=== PATIENT | female | born 1950 | race Caucasian/White ===

== ENCOUNTER → 2017-04-18 | Outpatient (CLI) | payer MEDICARE, OTHER ==
[~2017-04-18] MED LIST: bp med
== END ==
LOC: MC.RAD 11:15
DX: Z12.31 Encounter for screening mammogram for malignant neoplasm of breast (principal)

== ENCOUNTER 2018-02-04 13:17 | Inpatient (IN) | payer MEDICARE, OTHER ==
[2018-02-04] VITALS (307 sets, daily range): BP systolic 101–106; BP diastolic 51–961; PULSE 72–84; TEMP 96.1–97.4; O2SAT 80–98
[~2018-02-04] VITALS: Ht 175.3 cm; Wt 116.0 kg
[2018-02-04 14:18] LABS: BASO # 0.1 (0.0-0.2); BASO % 0.7 % (0.0-2.0); EOS % 0.2 % (0-4.0); GRAN # 5.6 (1.4-6.5); HEMATOCRIT 43.2 % (37.0-47.0); LYMPH % 23.3 % (20.0-51.0); MEAN CELL VOLUME 96 fl (80.0-100.0); MEAN CORPUSCULAR HEMOGLOBIN 31 pg (27.0-31.0); MEAN CORPUSCULAR HGB CONC 32 g/dl (33.0-37.0); MEAN PLATELET VOLUME 9.5 fl (7.4-10.4); MONO % 11.5 % (1.7-9.3); PLATELET COUNT 257 K/mm3 (130-400); RED BLOOD COUNT 4.49 M/mm3 (4.10-5.30); REDCELL DISTRIBUTION WIDTH-CV 15.3 % (11.5-14.5)
[2018-02-04] MEDS ORDERED: MICARDIS HCT 121 TA1 PO (14:19)
[2018-02-04] MEDS ORDERED: NORCO 325 MG-7.1 TAB PO (14:20)
[2018-02-04] MEDS ORDERED: AMITRIPTYLINE H25 M1 PO (14:21)
[2018-02-04 14:28] LABS: ALANINE AMINOTRANSFERASE 35 U/L (9-52); ALBUMIN 3.7 gm/dL (3.5-5.0); ALKALINE PHOSPHATASE 113 U/L (50-136); ANION GAP 12 mmol/L (7-16); AST,SGOT 28 U/L (15-37); BILIRUBIN,TOTAL 0.6 mg/dL (0.0-1.0); BLOOD UREA NITROGEN 28 mg/dL (7-17); CALCIUM 9.6 mg/dL (8.4-10.2); CARBON DIOXIDE 28 mmol/L (22-30); CHLORIDE 96 mmol/L (98-107); CREATININE, serum 1.94 mg/dL (0.52-1.25); GLUCOSE 100 mg/dL (74-106); POTASSIUM 4.2 mmol/L (3.4-5.0); SODIUM 136 mmol/L (137-145); TOTAL PROTEIN 7.1 gm/dL (6.4-8.2)
[2018-02-04] MEDS ORDERED: D-2000 90 MG-201 TAB PO (14:38)
[2018-02-04] MEDS ORDERED: PAMELOR50 MG PO (14:39)
[2018-02-04] MEDS ORDERED: NEURONTIN600 MG/TAB PO (14:41)
[2018-02-04 14:51] LABS: TROPONIN-I < 0.012 ng/mL (0.000-0.034)
[2018-02-04 15:22] LABS: COLLECTION METHOD CATHETER
[2018-02-04 15:34] LABS: HYALINE CAST >12 /lpf; MUCOUS Present /lpf; PH 5 (5-8); SQUAMOUS EPITHELIAL 0-2 /hpf; URINE APPEARANCE Hazy; URINE BACTERIA None Seen /hpf; URINE BILIRUBIN Negative (NEGATIVE); URINE BLOOD Negative (NEGATIVE); URINE COLOR Yellow; URINE GLUCOSE Negative (NEGATIVE); URINE KETONE Negative (NEGATIVE); URINE LEUKOCYTE ESTERASE Negative (NEGATIVE); URINE NITRATE Negative (NEGATIVE); URINE PROTEIN(semi-quant) Negative (NEGATIVE); URINE RBC 0-2 /hpf; URINE UROBILINOGEN >=4.0 mg/dL (NEGATIVE)
[2018-02-04] MEDS ORDERED: CYMBALTA 30MG30 MG PO (16:54)
[2018-02-05] VITALS (471 sets, daily range): BP systolic 95–118; BP diastolic 50–75; PULSE 70–99; TEMP 97.2–98.7; O2SAT 85–98
[2018-02-05 06:09] LABS: BASO % 0.6 % (0.0-2.0); EOS # 0.1 (0.0-0.7); EOS % 1.9 % (0-4.0); GRAN # 3.4 (1.4-6.5); GRAN % 54.3 % (42.2-75.2); HEMATOCRIT 39.6 % (37.0-47.0); HEMOGLOBIN 12.9 g/dl (12.5-16.0); MEAN CELL VOLUME 95 fl (80.0-100.0); MEAN CORPUSCULAR HEMOGLOBIN 31 pg (27.0-31.0); MEAN CORPUSCULAR HGB CONC 33 g/dl (33.0-37.0); MEAN PLATELET VOLUME 9.3 fl (7.4-10.4); MONO # 0.7 (0.1-0.6); PLATELET COUNT 246 K/mm3 (130-400); RED BLOOD COUNT 4.17 M/mm3 (4.10-5.30); REDCELL DISTRIBUTION WIDTH-CV 15.4 % (11.5-14.5)
[2018-02-05 07:11] LABS: CALCIUM 8.7 mg/dL (8.4-10.2); CREATININE, serum 1.18 mg/dL (0.52-1.25); POTASSIUM 3.7 mmol/L (3.4-5.0)
[2018-02-06 03:38] VITALS: BP 117/73; PULSE 92; TEMP 98
[2018-02-06 07:16] VITALS: BP 94/65; PULSE 86; TEMP 98.6
[2018-02-06 13:28] VITALS: BP 107/76; PULSE 95; TEMP 98.5
[2018-02-06 16:08] VITALS: BP 88/49; PULSE 73; TEMP 97.9
[2018-02-06 19:36] VITALS: BP 105/61; PULSE 86; TEMP 98.6
[2018-02-06 23:58] VITALS: BP 94/50; PULSE 78; TEMP 98.7
[2018-02-07 04:14] VITALS: BP 98/51; PULSE 81; TEMP 98.2
[2018-02-07 07:43] VITALS: BP 100/55; PULSE 79; TEMP 98.6
[2018-02-07 08:37] LABS: BASO % 0.6 % (0.0-2.0); EOS # 0.1 (0.0-0.7); EOS % 2.1 % (0-4.0); GRAN # 3.7 (1.4-6.5); GRAN % 58.8 % (42.2-75.2); LYMPH # 1.7 (1.2-3.4); LYMPH % 27.7 % (20.0-51.0); MEAN CELL VOLUME 94 fl (80.0-100.0); MEAN CORPUSCULAR HEMOGLOBIN 31 pg (27.0-31.0); MEAN CORPUSCULAR HGB CONC 33 g/dl (33.0-37.0); MEAN PLATELET VOLUME 9.4 fl (7.4-10.4); MONO # 0.7 (0.1-0.6); MONO % 10.5 % (1.7-9.3); PLATELET COUNT 220 K/mm3 (130-400); REDCELL DISTRIBUTION WIDTH-CV 15.2 % (11.5-14.5)
[2018-02-07 08:39] LABS: HEMATOCRIT 36.8 % (37.0-47.0)
[2018-02-07 08:44] LABS: CALCIUM 9.2 mg/dL (8.4-10.2); CREATININE, serum 0.91 mg/dL (0.52-1.25); POTASSIUM 4.3 mmol/L (3.4-5.0)
[2018-02-07 11:36] VITALS: BP 105/63; PULSE 89; TEMP 98.4
[2018-02-07 16:30] VITALS: BP 99/62; PULSE 83; TEMP 98.5
[2018-02-07] MEDS ORDERED: LEVAQUIN 750MG750 M1 PO (16:43)
[2018-02-07] MEDS ORDERED: PROAMATINE 5MG T5 MG PO (16:43)
== END 2018-02-07 18:00 | disposition home or self-care (01) | DRG 682 ==
LOC: COL.ER 13:17 → ICU 15:05 → MEDICAL 02-05 09:07 → ICU 02-05 09:08 → MEDICAL 02-05 22:49
PROVIDERS: Emergency Medicine; Physician Assistant
DX: N17.9 Acute kidney failure, unspecified (principal); J18.9 Pneumonia, unspecified organism; Z68.41 Body mass index [BMI] 40.0-44.9, adult; I95.2 Hypotension due to drugs; T46.5X5A Adverse effect of other antihypertensive drugs, initial encounter; E86.0 Dehydration; I10 Essential (primary) hypertension; F17.210 Nicotine dependence, cigarettes, uncomplicated; E66.9 Obesity, unspecified
CPT/HCPCS: 99223-AI; 99232-AI; 99233-AI; 99239; G0378; J1644; J1956; J3010; J7030; Q9967

== ENCOUNTER 2018-04-13 12:45 | Outpatient (RCR) | payer MEDICARE, OTHER ==
[~2018-04-13 12:45] MED LIST changes: +AMITRIPTYLINE H25 M1 PO; +CYMBALTA 30MG30 MG PO; +D-2000 90 MG-201 TAB PO; +LEVAQUIN 750MG750 M1 PO; +MICARDIS HCT 121 TA1 PO; +NEURONTIN600 MG/TAB PO; +NORCO 325 MG-7.1 TAB PO; +PAMELOR50 MG PO; +PROAMATINE 5MG T5 MG PO
== END 2018-04-18 08:56 | disposition home or self-care (01) ==
LOC: MKS.ESL.PT 12:45
DX: I89.0 Lymphedema, not elsewhere classified (principal); Z91.81 History of falling
CPT/HCPCS: G8978-GP; G8979-GP; G8980-GP

== ENCOUNTER → 2019-06-19 | Outpatient (CLI) | payer MEDICARE, OTHER | LOC: MC.RAD 13:04 | DX: Z12.31 Encounter for screening mammogram for malignant neoplasm of breast (principal) ==

== ENCOUNTER 2019-09-20 08:00 | Outpatient (RCR) | payer MEDICARE, OTHER ==
[2019-09-02 09:25] LABS: CALCIUM 9.7 mg/dL (8.4-10.2); CREATININE, serum 0.96 (0.52-1.25); POTASSIUM 4.7 mmol/L (3.4-5.0)
[2019-09-02 09:51] VITALS: BP 149/95; PULSE 89; TEMP 97.9
[2019-09-02 10:36] VITALS: BP 155/92; PULSE 91; TEMP 97.4
[2019-09-02 12:07] VITALS: BP 142/99; PULSE 95
[2019-09-02 13:25] VITALS: BP 135/82; PULSE 103
--- NOTE | 2019-09-02 16:47 | NUR ---
Pt required a dressing change during her infusion today. I dressed with 4x4 gauze, kerlix and coban. I did speak with Ericka HARDY who is pt's wound care nurse who offerred it would be reasonable to apply super absorbent dressings to open ulcers as needed. OKAY to use ABD pads with kerlix, and okay to use coban on top of kerlix. Any kind of alginate dressing would be fine. It is also fine for pt to bring in her own dressings and to use this material. okay to irrigate with normal saline or sterile water and pat dry before applying new dressing. spoke with Dr. Ford and will fax order to her for her to sign.
[2019-09-04 08:12] VITALS: BP 129/76; PULSE 101; TEMP 98.8
[2019-09-04 09:16] LABS: CALCIUM 9.9 mg/dL (8.4-10.2); CREATININE, serum 0.95 (0.52-1.25)
[2019-09-04 10:30] VITALS: BP 146/99; PULSE 103
[2019-09-04 11:30] VITALS: BP 155/90; PULSE 98
[2019-09-04 12:30] VITALS: BP 150/86; PULSE 97
[2019-09-04 14:23] VITALS: BP 105/71; PULSE 57; TEMP 98.8
[2019-09-06 09:01] LABS: CALCIUM 9.9 mg/dL (8.4-10.2); CREATININE, serum 0.98 (0.52-1.25)
[2019-09-06 09:02] VITALS: BP 110/79; PULSE 63; TEMP 98
[2019-09-06 14:15] VITALS: BP 138/84; PULSE 102; TEMP 97.9
[2019-09-08 08:25] VITALS: BP 139/82; PULSE 88; TEMP 97.9
[2019-09-08 11:13] VITALS: BP 127/72; PULSE 94; TEMP 97.9
--- NOTE | 2019-09-08 12:28 | NUR ---
Assessment complete. Patient alert and oriented. No complaints of pain at this time. IV site CD&I, place on 09/06 in express unit for this infusion specifically. Heart sounds were normal. Upper lobes of lungs were clear, lower lobes were diminished. Severe generalized edema. Bilateral lower extremities are ededamous and reddened. Radial and distal pulses were palpable. IV lasix infusing at 19 ml/hr. No further needs expressed at this time. Call light is within reach.
--- NOTE | 2019-09-08 14:23 | NUR ---
PATIENT LEFT THE FLOOR AT THIS TIME. LASIX INFUSION FINISHED. PATIENT WILL BE BACK ON MONDAY FOR SAME INFUSION, LEFT IV IN PLACE FOR NEXT VISIT. IV WAS CD&I AT ARRIVAL AND DEPARTURE. NO COMPLAINTS OF PAIN OR DISCOMFORT. WHEELED PATIENT OUT IN A WHEEL CHAIR VIA ER EXIT.
[2019-09-10 08:08] VITALS: BP 126/85; PULSE 90; TEMP 97.8
[2019-09-10 09:29] LABS: CALCIUM 10.1 mg/dL (8.4-10.2); CREATININE, serum 0.94 (0.52-1.25); POTASSIUM 3.7 mmol/L (3.4-5.0)
[2019-09-10 09:37] VITALS: BP 101/65; PULSE 97
[2019-09-10 10:45] VITALS: BP 102/75; PULSE 96
[2019-09-10 12:30] VITALS: BP 115/87; PULSE 97
[2019-09-10 14:00] VITALS: BP 125/90; PULSE 99
[2019-09-12 08:15] VITALS: BP 110/70; PULSE 85; TEMP 97.1
[2019-09-12 09:00] VITALS: BP 123/98; PULSE 85
[2019-09-12 09:01] LABS: CALCIUM 9.6 mg/dL (8.4-10.2); CREATININE, serum 0.9 (0.52-1.25); POTASSIUM 3.6 mmol/L (3.4-5.0)
[2019-09-12 10:00] VITALS: BP 101/63; PULSE 102
--- NOTE | 2019-09-12 12:01 | NUR ---
PT SLEEPING AT THIS TIME.
[2019-09-12 12:58] VITALS: BP 116/80; PULSE 101
[2019-09-12 14:14] VITALS: BP 118/85; PULSE 58
--- NOTE | 2019-09-14 08:00 | NUR ---
Patient to room 352 by wheelchair with . A&Ox4, denies pain and discomfort. VSS. IV CDI, coban covering. Lungs clear all mendes. HRR. BLE edema, kerlix covering prior wounds on legs. Patient on AHA diet. No further needs expressed from patient. Call light within reach
[2019-09-14 10:45] LABS: CREATININE, serum 0.98 (0.52-1.25); POTASSIUM 3.6 mmol/L (3.4-5.0)
[2019-09-14 11:33] VITALS: BP 125/77; PULSE 94; TEMP 97.3
[2019-09-14 15:50] VITALS: BP 115/74; PULSE 102; TEMP 97.7
--- NOTE | 2019-09-14 16:20 | NUR ---
IV lasix complete. Patient tolerated well. IV removed, tip intact, gauze and coban applied. VSS. Patient A&O. No further needs expressed from patient. Patient ambulated independently to wheelchair with assistance of . transported patient to vehicle with nursing staff
[2019-09-16 08:21] VITALS: BP 118/81; PULSE 87; TEMP 97.9
--- NOTE | 2019-09-16 08:30 | NUR ---
PATIENT STARTED ON PRESCRIBED LASIX INFUSION. SHE IS TOLERATING WELL. SHE IS ADVISED TO CALL WITH ANY CONCERNS OR NEEDS. SHE VERBALIZES UNDERSTANDING.
[2019-09-16 08:39] LABS: CALCIUM 9.6 mg/dL (8.4-10.2); CREATININE, serum 0.89 (0.52-1.25); POTASSIUM 3.6 mmol/L (3.4-5.0)
[2019-09-16 09:45] VITALS: BP 137/92; PULSE 101
--- NOTE | 2019-09-16 11:31 | NUR ---
PATIENT SLEEPING AT THIS TIME. LASIX INFUSION IN PROGRESS. WILL CONTINUE TO MONITOR.
[2019-09-16 11:43] VITALS: BP 98/57
[2019-09-16 14:07] VITALS: BP 147/90; PULSE 107
--- NOTE | 2019-09-16 14:09 | NUR ---
INFUSION COMPLETED AT 1400. PATIENT IV DISCONTINUED. VS TAKEN PRIOR TO DISCHARGE. WHEELS HER OUT IN WHEELCHAIR.
[2019-09-18 08:27] VITALS: BP 131/60; PULSE 92; TEMP 97.5
[2019-09-18 08:43] LABS: CALCIUM 9.6 mg/dL (8.4-10.2); CREATININE, serum 0.85 (0.52-1.25); POTASSIUM 3.3 mmol/L (3.4-5.0)
[2019-09-18 09:15] VITALS: BP 131/86; PULSE 96
[2019-09-18 10:20] VITALS: BP 112/79; PULSE 98
[2019-09-18 12:04] VITALS: BP 132/87; PULSE 100
[2019-09-18 13:22] VITALS: BP 129/100; PULSE 104; TEMP 97.4
[~2019-09-20] VITALS: Ht 175.3 cm; Wt 151.6 kg
[~2019-09-20 08:00] MED LIST changes: -D-2000 90 MG-201 TAB PO; +MASON NATURAL2000 IU PO; +PROAIR HFA0.09 MG/AC IH
[2019-09-20 08:46] LABS: CALCIUM 9.7 mg/dL (8.4-10.2); CREATININE, serum 0.79 (0.52-1.25); POTASSIUM 3.9 mmol/L (3.4-5.0)
[2019-09-20 08:49] VITALS: BP 148/76; PULSE 79; TEMP 97.7
[2019-09-20 09:28] VITALS: BP 156/83; PULSE 99
[2019-09-20 12:30] VITALS: BP 112/77; PULSE 91
[2019-09-20 14:00] VITALS: BP 136/87; PULSE 88
== END 2019-09-20 14:35 | disposition home or self-care (01) ==
LOC: EUO 08:00
PROVIDERS: Internal Medicine Interventional Cardiology
DX: I89.0 Lymphedema, not elsewhere classified (principal); R60.0 Localized edema; Z79.899 Other long term (current) drug therapy
CPT/HCPCS: J1940

== ENCOUNTER → 2019-12-17 | Outpatient (CLI) | payer MEDICARE, OTHER | LOC: ZCOL.LAB 15:22 | DX: L97.229 Non-pressure chronic ulcer of left calf with unspecified severity (principal) ==

== ENCOUNTER 2020-01-07 09:15 | Outpatient (RCR) | payer MEDICARE, OTHER | END 2020-01-12 | disposition home or self-care (01) | LOC: WSPT | DX: I89.0 Lymphedema, not elsewhere classified (principal) ==

== ENCOUNTER 2020-03-19 16:56 | Observation (INO) | payer MEDICARE, OTHER ==
[~2020-03-19] VITALS: Ht 172.7 cm; Wt 302.0 kg
[2020-03-19] MEDS ORDERED: TYLENOL 325MG325 MG PO (17:29)
[2020-03-19 17:40] LABS: BASO # 0.1 (0.0-0.2); BASO % 1.2 % (0.0-2.0); EOS # 0.2 (0.0-0.7); EOS % 2.6 % (0-4.0); GRAN # 3.1 (1.4-6.5); GRAN % 54.5 % (42.2-75.2); HEMOGLOBIN 14.6 g/dl (12.5-16.0); LYMPH # 1.8 (1.2-3.4); LYMPH % 30.8 % (20.0-51.0); MEAN CELL VOLUME 95 fl (80.0-100.0); MEAN CORPUSCULAR HEMOGLOBIN 30 pg (27.0-31.0); MEAN CORPUSCULAR HGB CONC 31 g/dl (33.0-37.0); MEAN PLATELET VOLUME 9.5 fl (7.4-10.4); MONO # 0.6 (0.1-0.6); MONO % 10.7 % (1.7-9.3); PLATELET COUNT 253 K/mm3 (130-400); RED BLOOD COUNT 4.95 M/mm3 (4.10-5.30); REDCELL DISTRIBUTION WIDTH-CV 13.9 % (11.5-14.5)
[2020-03-19 17:56] LABS: ALBUMIN 4.1 gm/dL (3.5-5.0); C-REACTIVE PROTEIN 1.2 mg/dL (0.0-0.9); CALCIUM 9.5 mg/dL (8.4-10.2); CREATININE, serum 0.81 (0.52-1.25); POTASSIUM 3.8 mmol/L (3.4-5.0); TOTAL PROTEIN 7.9 gm/dL (6.4-8.2)
--- NOTE | 2020-03-19 20:00 | NUR ---
ARRIVES FROM ED PER W/C. IS ALERT AND ORIENTED X4. HAS IVF INFUSING TO RIGHT FOREARM WITHOUT REDNESS OR SWELLING. HAS BILATERAL LOWER LEG SWELLING WITH DRESSINGS TO LEFT LOWER LEG THAT SHE CHANGES DAILY, LEFT LOWER LEG DOES HAVE SOME WEEPING NOTED. DENIES PAIN TO ABD AT THIS TIME. REPORTS PAIN HAS BEEN CONSISTENT FOR A MONTH. REPORTS CHRONIC BACK PAIN. UP AD JACK, VOIDING WITHOUT PROBLEM.
[2020-03-19 20:24] VITALS: BP 128/76; PULSE 69; TEMP 98
[2020-03-19 20:43] LABS: COLLECTION METHOD CLEAN CATCH
[2020-03-19 20:48] LABS: PH 6 (5-8); SQUAMOUS EPITHELIAL 0-2 /hpf; URINE APPEARANCE Clear; URINE BACTERIA None Seen /hpf; URINE BILIRUBIN Negative (NEGATIVE); URINE BLOOD Negative (NEGATIVE); URINE COLOR Yellow; URINE GLUCOSE Negative (NEGATIVE); URINE KETONE Negative (NEGATIVE); URINE LEUKOCYTE ESTERASE Negative (NEGATIVE); URINE NITRATE Negative (NEGATIVE); URINE PROTEIN(semi-quant) Negative (NEGATIVE); URINE RBC None Seen /hpf
[2020-03-19] MEDS ORDERED: CEPHALEXIN500 M1 PO (21:12)
[2020-03-19] MEDS ORDERED: FOSAMAX 70MG TA70 MG PO (21:13)
[2020-03-19] MEDS ORDERED: PAMELOR 25MG25 MG PO (21:15)
[2020-03-19 23:46] VITALS: BP 136/76; PULSE 78; TEMP 99.3
--- NOTE | 2020-03-20 | NUR ---
NPO for possible procedure today.
[2020-03-20 04:25] VITALS: BP 133/80; PULSE 80; TEMP 98.9
[2020-03-20 07:17] LABS: BASO # 0.1 (0.0-0.2); BASO % 1.1 % (0.0-2.0); EOS # 0.2 (0.0-0.7); EOS % 3.5 % (0-4.0); GRAN # 3.1 (1.4-6.5); GRAN % 58.3 % (42.2-75.2); HEMATOCRIT 44.3 % (37.0-47.0); HEMOGLOBIN 13.6 g/dl (12.5-16.0); LYMPH # 1.3 (1.2-3.4); LYMPH % 24.6 % (20.0-51.0); MEAN CELL VOLUME 95 fl (80.0-100.0); MEAN CORPUSCULAR HEMOGLOBIN 29 pg (27.0-31.0); MEAN CORPUSCULAR HGB CONC 31 g/dl (33.0-37.0); MEAN PLATELET VOLUME 10.2 fl (7.4-10.4); MONO # 0.7 (0.1-0.6); MONO % 12.1 % (1.7-9.3); PLATELET COUNT 238 K/mm3 (130-400); RED BLOOD COUNT 4.66 M/mm3 (4.10-5.30); REDCELL DISTRIBUTION WIDTH-CV 13.9 % (11.5-14.5)
[2020-03-20 07:22] VITALS: BP 110/56; PULSE 79; TEMP 98
--- NOTE | 2020-03-20 07:37 | NUR ---
PT IN BED DURING REPORT. VERBALIZED THAT SHE WANTS TO GO HOME TODAY.
--- NOTE | 2020-03-20 08:20 | NUR ---
PT SITTING UP ON SIDE OF BED TO TAKE AM MEDS. PT DENIES PAIN OR ISSUES R/T HOSPITAL ADMISSION. RESTING QUIETLY. PT A/O X3.
--- NOTE | 2020-03-20 11:02 | NUR ---
DISCHARGE INSTRUCTIONS PROVIDED TO PT AND SPOUSE. QUESTIONS SOLICITED AND ANSWERED. PT TAKEN TO FRONT IN A WHEEL CHAIR.
--- NOTE | 2020-03-20 11:18 | NUR ---
The patient discharged before Food And Beverage Manager could complete intake.
== END 2020-03-20 11:03 | disposition home or self-care (01) ==
LOC: COL.ER 16:56 → SURG 18:11
PROVIDERS: Emergency Medicine; ADMIT Surgery
DX: R10.31 Right lower quadrant pain (principal); Z90.49 Acquired absence of other specified parts of digestive tract; G89.29 Other chronic pain; M54.9 Dorsalgia, unspecified; Z87.891 Personal history of nicotine dependence; Z88.0 Allergy status to penicillin; Z88.8 Allergy status to other drugs, medicaments and biological substances
CPT/HCPCS: G0378; J0696; J7030

== ENCOUNTER 2020-04-01 13:00 | Outpatient (RCR) | payer MEDICARE, OTHER ==
[~2020-04-01 13:00] MED LIST changes: +CEPHALEXIN500 M1 PO; +FOSAMAX 70MG TA70 MG PO; +PAMELOR 25MG25 MG PO; +TYLENOL 325MG325 MG PO
== END 2020-04-12 | disposition home or self-care (01) ==
LOC: WSPT
DX: I89.0 Lymphedema, not elsewhere classified (principal)

== ENCOUNTER → 2020-06-22 | Outpatient (CLI) | payer MEDICARE, OTHER | LOC: MC.RAD 13:54 | DX: Z12.31 Encounter for screening mammogram for malignant neoplasm of breast (principal) ==

== ENCOUNTER 2020-12-04 05:57 | Day surgery (SDC) | payer MEDICARE, OTHER ==
[~2020-12-04] VITALS: Ht 172.7 cm; Wt 137.3 kg
[~2020-12-04 05:57] MED LIST changes: -MASON NATURAL2000 IU PO; +VITAMIN D31000 I1 PO
[2020-12-04] MEDS ORDERED: PROAMATINE 5MG T5 MG PO (06:39)
[2020-12-04] MEDS ORDERED: ASPIRIN E.C. 8181 MG PO (06:40)
[2020-12-04] MEDS ORDERED: NYSTATIN POWDER15 GM TOP (06:41)
[2020-12-04] MEDS ORDERED: LASIX 20MG TABL20 MG PO (06:41)
[2020-12-04 07:04] VITALS: BP 158/101; PULSE 76; TEMP 97.8
[2020-12-04 07:45] VITALS: BP 141/83; PULSE 86
--- NOTE | 2020-12-04 07:45 | NUR ---
Pt to GI bay 2 via cart from ENDO. Pt awake and alert. Pt ambulates to recliner with stand by assistance. Water and muffin given per pt request. Will continue to monitor. Call light within reach.
[2020-12-04 08:00] VITALS: BP 140/78; PULSE 73
--- NOTE | 2020-12-04 08:00 | NUR ---
Pt continues to rest. Tolerating food and fluids without difficulties. Call light within reach.
[2020-12-04 08:15] VITALS: BP 137/78; PULSE 72
--- NOTE | 2020-12-04 08:15 | NUR ---
Pt continues to rest. Denies needs. Call light within reach.
--- NOTE | 2020-12-04 08:30 | NUR ---
Discharge instructions reviewed. Pt voices understanding. IV site discontinued with all parts intact. Pt up to dress. Call light within reach.
--- NOTE | 2020-12-04 08:40 | NUR ---
Pt escorted to private car via wheel chair. Pt accompanied home by her .
== END 2020-12-04 08:40 | disposition home or self-care (01) ==
LOC: SDCO 05:57
DX: Z12.11 Encounter for screening for malignant neoplasm of colon (principal); D12.5 Benign neoplasm of sigmoid colon; K21.9 Gastro-esophageal reflux disease without esophagitis; D17.5 Benign lipomatous neoplasm of intra-abdominal organs; K57.30 Diverticulosis of large intestine without perforation or abscess without bleeding; K64.0 First degree hemorrhoids; K44.0 Diaphragmatic hernia with obstruction, without gangrene; K29.70 Gastritis, unspecified, without bleeding; K29.80 Duodenitis without bleeding; G89.29 Other chronic pain; M54.9 Dorsalgia, unspecified; F32.9 Major depressive disorder, single episode, unspecified; E78.5 Hyperlipidemia, unspecified; I10 Essential (primary) hypertension; M85.80 Other specified disorders of bone density and structure, unspecified site; Z90.49 Acquired absence of other specified parts of digestive tract; Z88.0 Allergy status to penicillin; Z88.8 Allergy status to other drugs, medicaments and biological substances; Z86.010 Personal history of colon polyps; E66.01 Morbid (severe) obesity due to excess calories; Z68.43 Body mass index [BMI] 50.0-59.9, adult
CPT/HCPCS: J2704; J7030

== ENCOUNTER 2024-03-20 14:16 | Emergency (ER) | payer MEDICARE, OTHER ==
[~2024-03-20] VITALS: Ht 172.7 cm; Wt 90.9 kg
[~2024-03-20 14:16] MED LIST changes: +ASPIRIN E.C. 8181 MG PO; +LASIX 20MG TABL20 MG PO; +NYSTATIN POWDER15 GM TOP
[2024-03-20] MEDS ORDERED: PREDNISONE20 MG PO (14:44)
[2024-03-20] MEDS ORDERED: ATARAX 25MG25 MG/TAB PO (14:44)
[2024-03-20] MEDS ORDERED: diphenhydrAMINE 50 MG/ML 1 ML VIAL IM ONE (14:45)
[2024-03-20] MEDS ORDERED: methylPREDNISolone Sod Succ 125 MG/2 ML VIAL IM ONE (14:45)
[2024-03-20 15:22] VITALS: BP 137/82; PULSE 63; TEMP 97.8
== END 2024-03-20 15:22 | disposition home or self-care (01) ==
LOC: COL.ER 14:16
DX: T78.40XA Allergy, unspecified, initial encounter (principal); E66.01 Morbid (severe) obesity due to excess calories; Z87.891 Personal history of nicotine dependence; Z68.30 Body mass index [BMI] 30.0-30.9, adult
CPT/HCPCS: J1200; J2919